=== PATIENT | female | born 1965 | race Caucasian/White ===

== ENCOUNTER 2020-12-31 20:42 | Observation (INO) ==
[2020-12-31] MEDS ORDERED: Ondansetron 4 MG/2 ML VIAL IVP ONE (21:04)
[2020-12-31 21:23] LABS: Basophils % 0.3 %; Eosinophils # 0.1 K/mcL (0.0-0.6); Eosinophils % 0.7 %; Hematocrit 37.6 % (35.3-44.9); Hemoglobin 12.6 g/dL (11.5-15.4); Immature Granulocytes % 0.3 % (0-4); Lymphocytes # 1.7 K/mcL (0.6-4.6); Lymphocytes % 23.1 %; Mean Corpuscular HGB Conc 33.5 g/dL (31.6-35.5); Mean Corpuscular Hemoglobin 29.8 pg (28.0-33.3); Mean Corpuscular Volume 88.9 fL (83.0-100.0); Mean Platelet Volume 10.2 fL (9.4-12.4); Monocytes # 0.6 K/mcL (0.0-1.3); Monocytes % 7.7 %; Platelet Count 231 K/mcL (140-400); Red Blood Count 4.23 M/mcL (3.82-4.97); Segmented Neutrophils % 67.9 %; White Blood Count 7.3 K/mcL (4.3-11.1)
[2020-12-31 21:41] LABS: BUN/Creatinine Ratio 33 (6-26); Blood Urea Nitrogen 16 mg/dL (6-20); Calcium 9.3 mg/dL (8.6-10.3); Carbon Dioxide 25 mEq/L (23-29); Chloride 104 mEq/L (98-107); Glucose 114 mg/dL (70-105); Osmolality,Calculated 286 (280-300); Potassium 3.7 mEq/L (3.5-5.1); Sodium 137 mEq/L (136-145); eGFR For African Americans > 60 (> 60); eGFR For Non-African Americans > 60 (> 60)
[2020-12-31 22:01] LABS: Amorphous Sediment,Urine Few per hpf (None-Few); Bilirubin,Urine Negative (Negative); Blood,Urine Negative (Negative); Clarity,Urine Turbid (Clear); Color,Urine Light-Yellow (Yellow); Glucose,Urine (UA) Normal (Normal); Ketones,Urine 10 mg/dL (Negative); Leukocyte Esterase,Urine Negative (Negative); Mucus,Urine Few per lpf (None-Few); Nitrite,Urine Negative (Negative); PH,Urine 8.5 pH Units (5.0-8.0); Protein,Urine Trace mg/dL (Neg-Trace); Specific Gravity,Urine 1.022 (1.010-1.025); Squamous Epithelial Cell,Urine Few per hpf (None-Few); Urobilinogen,Urine Normal (Normal)
[2020-12-31] MEDS ORDERED: 0.9 % Sodium Chloride 1,000 ML IVC ONE (22:58)
[2020-12-31] MEDS ORDERED: Ondansetron 4 MG/2 ML VIAL IVP PRN (23:01)
[2020-12-31] MEDS ORDERED: Naloxone 0.4 MG/ML INJ IVP PRN (23:01)
[2021-01-01 00:06] LABS: Amphetamine Screen,Urine Negative ng/mL (Cutoff=1000); Barbiturate Screen,Urine Negative ng/mL (Cutoff=200); Benzodiazepines Screen,Urine Negative ng/mL (Cutoff=200); Cannabinoid Screen,Urine Negative ng/mL (Cutoff = 50); Cocaine Screen,Urine Negative ng/mL (Cutoff= 300); Opiate Screen,Urine Positive ng/mL (Cutoff=300); Phencyclidine Screen,Urine Negative ng/mL (Cutoff=25)
[2021-01-01] MEDS: Aspirin Enteric Coated 325 MG Tablet PO SCH ×2 (03:02→09:09)
[2021-01-01] MEDS ORDERED: Perflutren Lipid Microsphere 1.3 ML in 0.9 % Sodium Chloride 8.7 ML IVP PRN (03:39)
[2021-01-01 03:46] LABS: Influenza A PCR Negative (Negative); Influenza B PCR Negative (Negative); Resp. Syncytial Virus PCR Negative (Negative)
[2021-01-01 03:47] LABS: SARS-CoV-2 by PCR (In House) Negative (Negative)
[2021-01-01 05:11] LABS: Hematocrit 37.3 % (35.3-44.9); Hemoglobin 12.3 g/dL (11.5-15.4); Mean Corpuscular Hemoglobin 29.7 pg (28.0-33.3); Mean Corpuscular Volume 90.1 fL (83.0-100.0); Mean Platelet Volume 10.2 fL (9.4-12.4); Platelet Count 232 K/mcL (140-400); Red Blood Count 4.14 M/mcL (3.82-4.97); White Blood Count 6.1 K/mcL (4.3-11.1)
[2021-01-01 05:36] LABS: % Iron Saturation 32 % (15-50); BUN/Creatinine Ratio 27 (6-26); Blood Urea Nitrogen 12 mg/dL (6-20); Calcium 9.1 mg/dL (8.6-10.3); Carbon Dioxide 26 mEq/L (23-29); Chloride 106 mEq/L (98-107); Chol/HDL Ratio 3.1 (0-4.9); Cholesterol 132 mg/dL (< 200); Glucose 98 mg/dL (70-105); HDL Cholesterol 42 mg/dL (40-59); Iron 105 mcg/dL (50-170); LDL Cholesterol,Calculated 83 mg/dL (< 100); Osmolality,Calculated 286 (280-300); Potassium 3.7 mEq/L (3.5-5.1); Sodium 138 mEq/L (136-145); Transferrin 234 mg/dL (203-362); Triglycerides 35 mg/dL (< 150); Troponin I < 0.03 ng/mL (< 0.04); eGFR For African Americans > 60 (> 60); eGFR For Non-African Americans > 60 (> 60)
[2021-01-01 05:47] LABS: Thyroid Stimulating Hormone 0.676 mcIU/mL (0.340-5.600)
[2021-01-01 05:50] LABS: Ferritin 56 ng/mL (10-120)
[2021-01-01 09:27] LABS: Folate 17.5 ng/mL (3.0-16.0)
[2021-01-01 12:06] LABS: Estimated Average Glucose 123 mg/dl; Hemoglobin A1C 5.9 %
[2021-01-01] MEDS ORDERED: Acetaminophen/Aspirin/Caffeine TABLET PO PRN (13:13)
[2021-01-01] MEDS ORDERED: Ketorolac 15 MG/ML VIAL IVP ONE (13:57)
[2021-01-01 15:04] VITALS: BP 106/64
[2021-01-02] MEDS ORDERED: BuPROPion SR (12 HR) 150 MG TABLET PO SCH (09:00)
[2021-01-02] MEDS ORDERED: FLUoxetine 20 MG CAPSULE PO SCH (09:00)
== END 2021-01-01 18:18 | disposition home or self-care (01) ==
LOC: EMEROOARM 20:42 → 3ANU 20:42 → SUATTDRO 23:16 → 3ANU 23:58
PROVIDERS: ADMIT Internal Medicine; ATTEND Family Medicine